=== PATIENT | female | born 1970 | race Caucasian/White ===

== ENCOUNTER → 2017-04-10 | Outpatient (CLI) | payer BC ==
[~2017-04-10] MED LIST: IRON325 M1 PO; LORATADINE10 M2 PO; MULTIPLE VITAM1 EACH PO; PRILOSEC20 MG PO; PROZAC20 MG PO; VITAMIN B12-FO1 EACH PO; VITAMIN D PO
== END | disposition home or self-care (01) ==
LOC: CDC 11:29
DX: Z01.810 Encounter for preprocedural cardiovascular examination (principal); C50.311 Malignant neoplasm of lower-inner quadrant of right female breast; Z17.0 Estrogen receptor positive status [ER+]
CPT/HCPCS: 93000

== ENCOUNTER 2017-04-23 08:15 | Day surgery (SDC) | payer BC ==
[~2017-04-23] VITALS: Ht 154.9 cm; Wt 90.7 kg
[~2017-04-23 08:15] MED LIST changes: +FLUOXETINE HCL60 MG PO; +VITAMIN B-12500 MC3 PO
[2017-04-23 09:06] VITALS: BP 118/62
[2017-04-23] MEDS ORDERED: HYDROCODON-ACE1 EAC7 PO (15:37)
[2017-04-23 16:42] VITALS: BP 121/66
[2017-04-23 17:42] VITALS: BP 115/58
[2017-04-23 18:28] VITALS: BP 136/63
== END 2017-04-23 18:33 | disposition home or self-care (01) ==
LOC: NUC 08:15 → SDC 08:15
DX: C50.311 Malignant neoplasm of lower-inner quadrant of right female breast (principal); Z17.0 Estrogen receptor positive status [ER+]; K21.9 Gastro-esophageal reflux disease without esophagitis; Z98.84 Bariatric surgery status; Z80.1 Family history of malignant neoplasm of trachea, bronchus and lung; Z80.42 Family history of malignant neoplasm of prostate; Z80.0 Family history of malignant neoplasm of digestive organs; E66.9 Obesity, unspecified; Z68.38 Body mass index [BMI] 38.0-38.9, adult; Z88.0 Allergy status to penicillin
CPT/HCPCS: 78195; 78999; 84702; 88305; 88307; 88342 TC; A9541; J0131; J1170; J2250; J3010; S0020

== ENCOUNTER 2017-08-01 10:34 | Day surgery (SDC) | payer BC ==
[~2017-08-01] VITALS: Ht 154.9 cm; Wt 93.0 kg
[~2017-08-01 10:34] MED LIST changes: +HYDROCODON-ACE1 EAC7 PO
[2017-08-01 10:56] VITALS: BP 131/69
[2017-08-01 18:15] VITALS: BP 114/65
[2017-08-01 20:10] VITALS: BP 119/59
[2017-08-02 00:13] VITALS: BP 124/65
[2017-08-02 03:35] VITALS: BP 119/68
[2017-08-02 06:12] LABS: HEMATOCRIT 35.1 % (36.0-46.0); HEMOGLOBIN 11.8 G/DL (11.9-15.5); MCH 32.1 PG (29.0-34.0); MCHC 33.6 G/DL (30.0-36.0); MCV 95.4 FL (83-99); PLATELET COUNT 240 K/uL (156-360); RBC DIS.WIDTH-CV 12.3 % (11.8-14.6); RBC DIS.WIDTH-SD 42.7 % (39-53); RED BLOOD COUNT 3.68 M/uL (3.80-5.20); WHITE BLOOD COUNT 8.2 K/uL (4.1-10.2)
[2017-08-02 06:42] LABS: CHLORIDE 103 MEQ/L (99-109); CREATININE 0.6 MG/DL (0.6-1.3); GFR ESTIMATE (CALCULATED) > 59 mL/min/; GLUCOSE 92 mg/dL (70-99); POTASSIUM 4.1 MEQ/L (3.7-5.4); SODIUM 138 MEQ/L (136-147); UREA NITROGEN (BUN) 6 mg/dL (9-23)
[2017-08-02 08:15] VITALS: BP 115/60
[2017-08-02] MEDS ORDERED: DOCUSATE SODIU100 MG PO (08:23)
[2017-08-02] MEDS ORDERED: MOTRIN800 MG PO (08:23)
[2017-08-02] MEDS ORDERED: ENDOCET 5-3251 EACH PO (08:23)
[2017-08-02 11:15] VITALS: BP 111/59
== END 2017-08-02 13:11 | disposition home or self-care (01) ==
LOC: SDC 10:34 → 2SOUTH 16:15 → 2EAST 16:15 → 2SOUTH 16:15 → ENRESERV 16:16 → SDC 16:16 → ENRESERV 17:09 → 2EAST 18:00
PROVIDERS: Obstetrics & Gynecology
DX: N92.1 Excessive and frequent menstruation with irregular cycle (principal); N80.0 Endometriosis of uterus; D25.9 Leiomyoma of uterus, unspecified; N83.12 Corpus luteum cyst of left ovary; N83.11 Corpus luteum cyst of right ovary; N83.02 Follicular cyst of left ovary; N83.01 Follicular cyst of right ovary; N94.6 Dysmenorrhea, unspecified; K66.0 Peritoneal adhesions (postprocedural) (postinfection); Z85.3 Personal history of malignant neoplasm of breast; Z79.810 Long term (current) use of selective estrogen receptor modulators (SERMs); E66.9 Obesity, unspecified; Z68.39 Body mass index [BMI] 39.0-39.9, adult; R51 Headache; Z88.0 Allergy status to penicillin; Z91.09 Other allergy status, other than to drugs and biological substances; Z98.84 Bariatric surgery status; Z82.49 Family history of ischemic heart disease and other diseases of the circulatory system; Z83.3 Family history of diabetes mellitus; Z82.3 Family history of stroke; Z80.42 Family history of malignant neoplasm of prostate; Z82.62 Family history of osteoporosis; Z83.42 Family history of familial hypercholesterolemia; Z84.2 Family history of other diseases of the genitourinary system; Z80.1 Family history of malignant neoplasm of trachea, bronchus and lung
CPT/HCPCS: 80048; 85027; 88307; 94799; G0378; J0131; J0330; J1100; J1170; J1580; J1885; J2270; J2405; J2710; J3010; J7050; J7120; S0020